=== PATIENT | female | born 1975 | race Caucasian/White ===

== ENCOUNTER 2017-08-29 08:20 | Outpatient (CLI) | payer BC ==
[~2017-08-29] VITALS: Ht 165.1 cm; Wt 57.3 kg
[2017-08-29] VITALS (17 sets, daily range): BP systolic 101–153; BP diastolic 64–93; PULSE 73–93; TEMP 98.3
[~2017-08-29 08:20] MED LIST: PRENATAL1 TA1 PO
== END 2017-08-29 12:44 | disposition home or self-care (01) ==
LOC: COL.RAD 08:20
DX: D15.2 Benign neoplasm of mediastinum (principal)